=== PATIENT | female | born 1990 | race American Indian/Alaskan Native ===

== ENCOUNTER 2018-10-23 17:09 | Emergency (ER) | payer MEDICAID ==
[2018-10-23 17:32] VITALS: BP 129/78
[2018-10-23] MEDS ORDERED: KEPPRA PO ONE (17:34)
--- NOTE | 2018-10-23 17:39 | Emergency Department Report ---
HPI - General Chief Complaint: Seizure Time Seen by Provider: 10/23/18 17:30 - HPI HPI: Room 6 The patient is a 28-year-old female presenting with a chief complaint of seizure. The patient states she thinks she was late taking her Keppra had a generalized tonic-clonic seizure today. Patient states her last seizure before today occurred approximately 1-2 months ago. Patient states she is currently asymptomatic and ready to go home Location: [facility] Duration: [See above] Quality: Seizure Severity: Moderate Modifying factors: [see above] Context: [see above] Mode of transportation: [not driving] ED Past Medical Hx - Past Medical History Hx Seizures: Yes Additional medical history: AVM - Arterial Venous Malformation - Surgical History Past Surgical History?: Yes Additional Surgical History: Brain surgery - Family History Family history: no significant - Social History Smoking Status: Never Smoker Substance Use Type: None (denies illicit drug use), Alcohol (occasional) - Medications Home Medications: Home Medications Medication Instructions Recorded Confirmed Last Taken Type levETIRAcetam [Keppra TAB] 1,000 mg PO QDAY #90 tablet 10/23/18 Unknown Rx ED Review of Systems ROS: Stated complaint: SEIZURE Other details as noted in HPI Constitutional: no symptoms reported Eyes: denies: eye pain ENT: denies: throat pain Respiratory: no symptoms reported Cardiovascular: denies: chest pain Endocrine: no symptoms reported Gastrointestinal: denies: abdominal pain Genitourinary: denies: dysuria Musculoskeletal: denies: back pain Neurological: other (seizure) Physical Exam - Physical Exam Vital Signs: Vital Signs 10/23/18 10/23/18 10/23/18 17:21 17:29 17:33 Temperature 98.6 F 98.6 F Pulse Rate 93 H 86 Respiratory 16 18 18 Rate Blood Pressure 129/78 Blood Pressure 118/86 [Left] O2 Sat by Pulse 94 98 98 Oximetry Physical Exam: GENERAL: The patient is well-developed well-nourished female lying on stretcher not appearing to be in acute distress. [] HEENT: Normocephalic. Atraumatic. Extraocular motions are intact. Patient has moist mucous membranes. NECK: Supple. Trachea midline CHEST/LUNGS: Clear to auscultation. There is no respiratory distress noted. HEART/CARDIOVASCULAR: Regular. There is no tachycardia. There is no gallop rub or murmur. ABDOMEN: Abdomen is soft, nontender. Patient has normal bowel sounds. There is no abdominal distention. SKIN: There is no rash. There is no edema. There is no diaphoresis. NEURO: The patient is awake, alert, and oriented. The patient is cooperative. The patient has no focal neurologic deficits. The patient has normal speech. Cranial nerves II through XII grossly intact, no drift MUSCULOSKELETAL: There is no evidence of acute injury. ED Course Vital Signs 10/23/18 10/23/18 10/23/18 17:21 17:29 17:33 Temperature 98.6 F 98.6 F Pulse Rate 93 H 86 Respiratory 16 18 18 Rate Blood Pressure 129/78 Blood Pressure 118/86 [Left] O2 Sat by Pulse 94 98 98 Oximetry ED Medical Decision Making - Differential Diagnosis seizure Critical care attestation.: If time is entered above; I have spent that time in minutes in the direct care of this critically ill patient, excluding procedure time. ED Disposition Clinical Impression: Seizure Disposition: DC-01 TO HOME OR SELFCARE Is pt being admited?: No Does the pt Need Aspirin: No Condition: Stable Instructions: Epilepsy (ED) Additional Instructions: Return to the emergency department immediately should you develop worsening symptoms, fever, inability to tolerate food or liquid or any other concerns. Prescriptions: levETIRAcetam [Keppra TAB] 1,000 mg PO QDAY #90 tablet Referrals: SHYLA HUSSEIN MD [Staff Physician] - 3-5 Days (Dr Hussein is a neurologist. Please follow up with him for further evaluation and to be established as a patient) Time of Disposition: 17:39
== END 2018-10-23 17:50 | disposition home or self-care (01) ==
LOC: ED 17:09
DX: R56.9 Unspecified convulsions (principal)